=== PATIENT | female | born 1975 | race Caucasian/White ===

== ENCOUNTER 2021-08-22 23:23 | Emergency (ER) | payer MEDICAID ==
[2021-08-22] MEDS ORDERED: Morphine 4 MG/ML Syringe IVPUSH ONE (23:46)
--- NOTE | 2021-08-22 23:49 | EDM.PDOC ---
ED HPI GENERAL MEDICAL PROBLEM - General Chief Complaint: Chest Pain Stated Complaint: CHEST PAIN Time Seen by Provider: 08/22/21 23:47 Source of Information: Reports: Patient History Limitations: Reports: No Limitations - History of Present Illness INITIAL COMMENTS - FREE TEXT/NARRATIVE: Patient is a 46-year-old female with a history of morbid obesity presenting with a chief complaint of chest pain and shortness of breath. Patient reports symptoms have been for the past 1 week. Seem to have worsened over the past few days. Patient states she feels the discomfort in her chest constantly but seems to have episodes where they get significantly worse. Does not seem to have any exacerbating or palliative factors. No exacerbation with exertion. Patient reports associated symptoms of left leg pain which is felt like a cramp for the past few days as well. Has not noticed increased swelling in her legs. Patient denies any fevers, cough, diaphoresis. Patient states she has felt sick and like her health is plummeted since having Covid several months ago. No interventions performed prior to arrival. Patient denies any history of MA, PE, DVT, recent surgeries, oral contraceptive use. - Related Data Allergies Allergy/AdvReac Type Severity Reaction Status Date / Time vitamin E (d-alpha Allergy Hives Verified 08/22/21 23:30 tocopherol) [vitamin E] Home Meds: Home Meds lisinopriL [Lisinopril] 20 mg PO DAILY 08/22/21 [History] Past Medical History Cardiovascular History: Reports: Hypertension DIRECTOR OF MEDICAL SERVICES History: Reports: Musculoskeletal History: Reports: Fibromyalgia - Past Surgical History Female Surgical History: Reports: Section Social & Family History - Tobacco Use Tobacco Use Status *Q: Former Tobacco User Used Tobacco, but Quit: Yes Month/Year Tobacco Last Used: 2018 - Caffeine Use Caffeine Use: Reports: Coffee - Recreational Drug Use Recreational Drug Use: Yes Drug Use in Last 12 Months: Yes Recreational Drug Type: Reports: Marijuana/Hashish Recreational Drug Use Frequency: Daily ED ROS GENERAL - Review of Systems Review Of Systems: See Below Free Text/Narrative/Comment: In addition to that documented in the HPI above, the additional ROS was obtained: Constitutional: Denies fevers or chills Eyes: Denies vision changes ENMT: Denies sore throat CV: Per HPI Resp: Per HPI GI: Mild mucousy diarrhea : Denies painful urination MSK: Denies recent trauma Skin: Denies new rashes Neuro: Denies new numbness or tingling or weakness Endocrine: Denies unexpected weight loss Heme: Denies bleeding disorders ED EXAM, GENERAL - Physical Exam Exam: See Below Free Text/Narrative:: I have reviewed the triage vital signs Const: Patient extremely anxious in appearance well nourished, well developed, appears stated age Eyes: Pupils Equal and reactive to light bilaterally, no conjunctival injection HENT: No signs of trauma or swelling, Neck supple without meningismus CV: Tachycardic with regular rhythm, Warm, well-perfused extremities RESP: Unlabored respiratory effort GI: soft, non-tender, non-distended, no masses MSK: No gross deformities appreciated Skin: Warm, dry. No rashes Neuro: Alert, gas appliance installer II-XII grossly intact. Sensation and motor function of extremities grossly intact. Psych: Appropriate mood and affect. #1 Interpretation EKG Date: 08/22/21 Time: 23:38 Rhythm: Other (sinus tachycardia) Rate (Beats/Min): 104 [place]: Normal P-Wave: Enlarged QRS: Normal ST-T: Normal QT: Normal Comparison: NA - No Prior EKG EKG Interpretation Comments: abnormal EKG Course - Vital Signs Last Recorded V/S: Last Vital Signs Temp 36.6 C 08/22/21 23:31 Pulse 120 H 08/22/21 23:31 Resp 20 08/22/21 23:31 BP 221/140 H 08/22/21 23:31 Pulse Ox 96 08/22/21 23:31 - Orders/Labs/Meds Orders: Active Orders 24 hr Category Date Time Status Chest PE [Ang Chest] [CT] Stat Exams 08/22/21 23:46 Taken Sodium Chloride 0.9% [Normal Saline] 100 ml Med 08/23/21 00:45 Active IV ASDIRECTED Medication Orders Sodium Chloride (Normal Saline) 100 mls @ 60 mls/hr IV ASDIRECTED LIBRA Last Admin: 08/23/21 00:42 Dose: 60 mls/hr Documented by: ALTAGRACIA Labs: Laboratory Tests 08/22/21 08/22/21 08/22/21 Range/Units 23:55 23:55 23:55 WBC 12.85 H (3.98-10.04) K/mm3 RBC 4.64 (3.98-5.22) M/mm3 Hgb 13.5 D (11.2-15.7) gm/dl Hct 42.1 (34.1-44.9) % MCV 90.7 D (79.4-94.8) fl MCH 29.1 (25.6-32.2) pg MCHC 32.1 L (32.2-35.5) g/dl RDW Std Deviation 47.3 H (36.4-46.3) fL Plt Count 294 (182-369) K/mm3 MPV 11.6 (9.4-12.3) fl Neut % (Auto) 59.0 (34.0-71.1) % Lymph % (Auto) 33.0 (19.3-51.7) % [place] % (Auto) 5.7 (4.7-12.5) % Eos % (Auto) 1.7 (0.7-5.8) Baso % (Auto) 0.4 (0.1-1.2) % Neut # (Auto) 7.59 H (1.56-6.13) K/mm3 Lymph # (Auto) 4.24 H (1.18-3.74) K/mm3 [place] # (Auto) 0.73 H (0.24-0.36) K/mm3 Eos # (Auto) 0.22 (0.04-0.36) K/mm3 Baso # (Auto) 0.05 (0.01-0.08) K/mm3 PT 9.7 (9.7-12.0) SECONDS INR < 0.93 Sodium 139 (136-145) mEq/L Potassium 3.3 L (3.5-5.1) mEq/L Chloride 102 (98-107) mEq/L Carbon Dioxide 27 (21-32) mEq/L Anion Gap 13.3 (5-15) BUN 16 (7-18) mg/dL Creatinine 0.9 (0.55-1.02) mg/dL Est Cr Clr Drug Dosing 65.30 mL/min Estimated GFR (MDRD) > 60 (>60) mL/min BUN/Creatinine Ratio 17.8 (14-18) Glucose 136 H (70-99) mg/dL Calcium 8.9 (8.5-10.1) mg/dL Total Bilirubin 0.3 (0.2-1.0) mg/dL AST 16 (15-37) U/L ALT 20 (14-59) U/L Alkaline Phosphatase 86 (46-116) U/L Troponin I < 0.017 (0.00-0.056) ng/mL NT-Pro-B Natriuret Pep (0-125) pg/mL Total Protein 8.0 (6.4-8.2) g/dl Albumin 3.7 (3.4-5.0) g/dl Globulin 4.3 gm/dL Albumin/Globulin Ratio 0.9 L (1-2) 08/22/21 08/23/21 Range/Units 23:55 02:45 WBC (3.98-10.04) K/mm3 RBC (3.98-5.22) M/mm3 Hgb (11.2-15.7) gm/dl Hct (34.1-44.9) % MCV (79.4-94.8) fl MCH (25.6-32.2) pg MCHC (32.2-35.5) g/dl RDW Std Deviation (36.4-46.3) fL Plt Count (182-369) K/mm3 MPV (9.4-12.3) fl Neut % (Auto) (34.0-71.1) % Lymph % (Auto) (19.3-51.7) % [place] % (Auto) (4.7-12.5) % Eos % (Auto) (0.7-5.8) Baso % (Auto) (0.1-1.2) % Neut # (Auto) (1.56-6.13) K/mm3 Lymph # (Auto) (1.18-3.74) K/mm3 [place] # (Auto) (0.24-0.36) K/mm3 Eos # (Auto) (0.04-0.36) K/mm3 Baso # (Auto) (0.01-0.08) K/mm3 PT (9.7-12.0) SECONDS INR Sodium (136-145) mEq/L Potassium (3.5-5.1) mEq/L Chloride (98-107) mEq/L Carbon Dioxide (21-32) mEq/L Anion Gap (5-15) BUN (7-18) mg/dL Creatinine (0.55-1.02) mg/dL Est Cr Clr Drug Dosing mL/min Estimated GFR (MDRD) (>60) mL/min BUN/Creatinine Ratio (14-18) Glucose (70-99) mg/dL Calcium (8.5-10.1) mg/dL Total Bilirubin (0.2-1.0) mg/dL AST (15-37) U/L ALT (14-59) U/L Alkaline Phosphatase (46-116) U/L Troponin I < 0.017 (0.00-0.056) ng/mL NT-Pro-B Natriuret Pep 110 (0-125) pg/mL Total Protein (6.4-8.2) g/dl Albumin (3.4-5.0) g/dl Globulin gm/dL Albumin/Globulin Ratio (1-2) Meds: Medications Generic Name Dose Route Start Last Admin Trade Name Freq PRN Reason Stop Dose Admin Sodium Chloride 100 mls @ 60 mls/hr 08/23/21 00:45 08/23/21 00:42 Normal Saline IV 60 mls/hr ASDIRECTED LIBRA Administration Discontinued Medications Generic Name Dose Route Start Last Admin Trade Name Freq PRN Reason Stop Dose Admin Iopamidol 100 ml 08/23/21 00:40 08/23/21 00:42 Iopamidol 755 Mg/Ml 100 Ml Bottle IVPUSH 08/23/21 00:41 100 ml ONETIME ONE Administration Morphine Sulfate 4 mg 08/22/21 23:46 08/23/21 00:12 Morphine 4 Mg/Ml Syringe IVPUSH 08/22/21 23:47 4 mg ONETIME ONE Administration Sodium Chloride 10 ml 08/23/21 00:40 08/23/21 00:42 Sodium Chloride 0.9% 10 Ml Syringe FLUSH 08/23/21 00:41 10 ml ONETIME ONE Administration Departure - Departure Time of Disposition: 03:18 Disposition: Home, Self-Care 01 Clinical Impression: Atypical chest pain Instructions: Nonspecific Chest Pain, Adult Referrals: Jaylin Vale PA-C [Primary Care Provider] - Forms: ED Department Discharge Additional Instructions: Please follow-up with your primary care physician on Thursday for further evaluation and testing. Return to the emergency room for any worsening symptoms or other emergent concerns. Sepsis Event Note (ED) - Evaluation Sepsis Screening Result: No Definite Risk - Focused Exam Vital Signs: Vital Signs Temp Pulse Resp BP Pulse Ox 08/22/21 23:31 36.6 C 120 H 20 221/140 H 96 - My Orders Last 24 Hours: My Active Orders 08/22/21 23:46 Chest PE [Ang Chest] [CT] Stat 08/23/21 00:45 Sodium Chloride 0.9% [Normal Saline] 100 ml IV ASDIRECTED - Assessment/Plan Last 24 Hours: My Active Orders 08/22/21 23:46 Chest PE [Ang Chest] [CT] Stat 08/23/21 00:45 Sodium Chloride 0.9% [Normal Saline] 100 ml IV ASDIRECTED Assessment:: Patient is a 46-year-old female presenting to the emergency room with chest pain. Patient had unremarkable ER course. Initially patient was significantly hypertensive and tachycardic. These both resolved with minimal intervention. Patient did receive some morphine but otherwise no additional treatment. Differential diagnosis considered for this patient include ACS, PE, aortic dissection. Laboratory studies and EKG along with CT were performed. Labora tory studies demonstrate mildly elevated white blood cell count which is nonspecific. Serial troponins were negative. CAT scan was negative for acute findings such as pulmonary embolism or pneumonia. EKG demonstrates sinus tachycardia. Unclear etiology of patient's chest pain but anxiety seems to be playing a role in this patient as well. Recommended follow-up with primary care next week. Return precautions given as usual.
[2021-08-23] MEDS ORDERED: Iopamidol 755 Mg/ML 100 ML Bottle IVPUSH ONE (00:40)
[2021-08-23] MEDS ORDERED: Sodium Chloride 0.9% 10 ML Syringe FLUSH ONE (00:40)
[2021-08-23] MEDS ORDERED: Sodium Chloride 0.9% 100 ML IV SCH (00:45)
--- NOTE | 2021-08-23 06:03 | CT ---
CT chest Technique: Multiple axial sections were obtained from above the lung apices inferiorly through the lung bases. Intravenous contrast was utilized. Study has been performed as a pulmonary angiogram protocol. Comparison: No prior chest imaging is available. Findings: Pulmonary arteries are fairly well opacified. No filling defects are seen to indicate pulmonary embolism. Thoracic aorta shows no aneurysm. Mediastinum shows no adenopathy. No axillary adenopathy is seen. No pericardial thickening is seen. Visualized upper abdomen shows mild fatty infiltration within the liver. Lungs are clear with no acute parenchymal change. Slight degenerative change is seen within the spine consisting of disc space narrowing and endplate osteophytes. Impression: 1. No findings of pulmonary embolism. 2. Other chronic findings as noted above. Nothing acute is seen. Diagnostic code #2 I agree with preliminary report from [facility], finalized on 08/23/21, 2:45 AM MUSEUM SPECIALIST
== END 2021-08-23 03:30 | disposition home or self-care (01) ==
LOC: JD.ED 23:23
DX: R07.89 Other chest pain (principal); R00.0 Tachycardia, unspecified; I10 Essential (primary) hypertension; Z87.891 Personal history of nicotine dependence; Z88.8 Allergy status to other drugs, medicaments and biological substances; Z79.899 Other long term (current) drug therapy
CPT/HCPCS: 36415; 71275; 80053; 83880; 84484; 85025; 85610; 93005; 96374; 99285; J2270; Q9967

== ENCOUNTER 2021-11-23 15:53 | Emergency (ER) | payer MEDICAID ==
[2021-11-23] MEDS ORDERED: Amoxicillin/Clavulanate K 875-125 MG Tab PO ONE (16:13)
[2021-11-23] MEDS ORDERED: Ketorolac 60 MG/2 ML SDV IM ONE (16:15)
[2021-11-23 16:48] LABS: CORONAVIRUS COVID-19 NAA NEGATIVE (NEGATIVE)
== END 2021-11-23 16:48 | disposition home or self-care (01) ==
LOC: JD.ED 15:53
DX: B34.9 Viral infection, unspecified (principal); H66.001 Acute suppurative otitis media without spontaneous rupture of ear drum, right ear; I10 Essential (primary) hypertension; Z91.048 Other nonmedicinal substance allergy status; Z79.899 Other long term (current) drug therapy; Z20.822 Contact with and (suspected) exposure to COVID-19
CPT/HCPCS: 0241U; 96372; 99283; A9270; J1885; 99284

== ENCOUNTER 2024-05-28 11:10 | Emergency (ER) | payer MEDICAID, OTHER ==
[2024-05-28] MEDS: Ketorolac 60 MG/2 ML SDV IM ONE (11:41)
== END 2024-05-28 12:25 | disposition home or self-care (01) ==
LOC: JD.ED 11:10
DX: M17.12 Unilateral primary osteoarthritis, left knee (principal); I10 Essential (primary) hypertension; Z86.16 Personal history of COVID-19; Z79.899 Other long term (current) drug therapy; Z88.8 Allergy status to other drugs, medicaments and biological substances
CPT/HCPCS: 73564; 96372; 99283; J1885

== ENCOUNTER 2025-09-01 07:59 | Emergency (ER) | payer MEDICAID, OTHER ==
[2025-09-01] MEDS ORDERED: Sodium Chloride 0.9% 10 ML Syringe FLUSH PRN (08:33)
[2025-09-01 08:47] LABS: BASOPHILS ABSOLUTE AUTO 0.1 K/mm3 (0.0-0.2); BASOPHILS PERCENT AUTO 0.7 % (0.0-1.0); EOSINOPHILS ABSOLUTE AUTO 0.2 K/mm3 (0.0-0.4); EOSINOPHILS PERCENT AUTO 2.0 % (0.0-6.0); IMMATURE GRAN ABSOLUTE AUTO 0.02 K/mm3 (0.00-0.05); IMMATURE GRAN PERCENT AUTO 0.2 % (0.0-0.4); LYMPHOCYTES ABSOLUTE AUTO 2.3 K/mm3 (1.0-4.8); LYMPHOCYTES PERCENT AUTO 28.8 % (24.0-44.0); MEAN PLATELET VOLUME 11.6 fl (9.4-12.3); MONOCYTES ABSOLUTE AUTO 0.5 K/mm3 (0.0-0.8); MONOCYTES PERCENT AUTO 5.5 % (0.0-8.0); NEUTROPHILS ABSOLUTE AUTO 5.1 K/mm3 (1.8-7.7); NEUTROPHILS PERCENT AUTO 62.8 % (41.0-71.0); NRBC ABSOLUTE 0.00 (0.00-0.02); NRBC PERCENT 0.0 % (0.0-0.2); PLATELET COUNT,PLT 302 K/mm3 (150-400); RED BLOOD CELL COUNT 4.52 M/mm3 (4.10-5.30); WHITE BLOOD CELL COUNT,WBC 8.13 K/mm3 (3.9-11.3)
[2025-09-01 09:22] LABS: A/G RATIO 0.9 (1-2); ALANINE AMINOTRANSFERASE,ALT 17 U/L (14-59); ASPARTATE AMNIOTRANSFERASE,AST 17 U/L (15-37); BILIRUBIN TOTAL 0.8 mg/dL (0.2-1.0); BLOOD UREA NITROGEN,BUN 10 mg/dL (7-18); CARBON DIOXIDE,CO2 28 mEq/L (21-32); CHLORIDE,CL 104 mEq/L (98-107); CREATININE 1.0 mg/dL (0.55-1.02); EST CRCL DRUG DOSING (CG) 56.29 mL/min; ESTIMATED GFR 69 mL/min (>60); GLUCOSE RANDOM 100 mg/dL (70-99); PROTEIN TOTAL,TP 7.7 g/dl (6.4-8.2); SODIUM,NA 143 mEq/L (136-145)
[2025-09-01 09:26] LABS: TROPONIN I HIGH SENSITIVITY < 4 pg/mL (<=51)
[2025-09-01 09:27] LABS: POTASSIUM,K 3.7 mEq/L (3.5-5.1)
== END 2025-09-01 13:31 | disposition home or self-care (01) ==
LOC: JD.ED 07:59
DX: R07.9 Chest pain, unspecified (principal); I10 Essential (primary) hypertension; Z88.8 Allergy status to other drugs, medicaments and biological substances; Z79.899 Other long term (current) drug therapy; Z86.16 Personal history of COVID-19
CPT/HCPCS: 36415; 71045; 71045-26; 80053; 83735; 83880; 84484; 84703; 85025; 93005; 99285